=== PATIENT | male | born 1955 | race Caucasian/White ===

== ENCOUNTER 2022-10-17 12:10 | Outpatient (CLI) | payer MEDICARE, SELFPAY ==
--- NOTE | ~2022-10-17 | XR_ITS ---
XR abdomen/kub 1V 10/17/2022 12:26 Indication: Left renal stone. Recent stent placement. Procedure: KUB Comparison: 08/02/2007 Findings: Bowel gas pattern is nonobstructive. There is a left internal ureteral stent. There is a hawk rgical clip in the right upper quadrant, likely prior cholecystectomy. There is a small left renal st one at the lower pole. There are pelvic phleboliths and vascular calcifications. Impression: 1: Left nephrolithiasis. Left internal ureteral stent in expected position. Reviewed, dictated and finalized at location L. Impression: 1: Left nephrolithiasis. Left internal ureteral stent in expected position.
== END 2022-10-17 12:11 | disposition home or self-care (01) ==
LOC: ANHIMG 12:15
PROVIDERS: PCP Physician Assistant Medical; Visit Provider Urology
DX: N20.0 Calculus of kidney (principal)
CPT/HCPCS: 74018

== ENCOUNTER 2022-10-25 08:20 | Outpatient (CLI) | payer MEDICARE, SELFPAY ==
--- NOTE | 2022-10-25 08:59 | ECG_ITS ---
Measurements Intervals Andrews Rate: 57 P: 23 VT: 152 QRS: 28 QRSD: 130 T: -9 QT: 444 QTc: 435 Interpretive Statements SINUS BRADYCARDIA RIGHT BUNDLE BRANCH BLOCK BORDERLINE ST-T WAVE ABNORMALITY- INFERIOR LEADS ABNORMAL ECG NO PREVIOUS ECG AVAILABLE FOR COMPARISON Electronically Signed On 10-25-2022 9:42:22 CDT by Guero Negrete D.O.
[2022-10-25 09:39] LABS: INR 0.9; Prothrombin Time 12.7 Seconds (11.1-14.7)
[2022-10-25 09:40] LABS: Partial Thromboplastin Time 24.4 SECONDS (22.3-36.8)
[2022-10-25 09:56] LABS: Anion Gap 6 mmol/L (8-16); Blood Urea Nitrogen 13 mg/dL (9-20); Calcium 8.8 mg/dL (8.4-10.2); Carbon Dioxide 26 mmol/L (22-30); Chloride 104 mmol/L (98-107); Estimated Glomerular Filt Rate > 60; Glucose 182 mg/dL (65-110); Potassium 4.4 mmol/L (3.4-5.0); Sodium 136 mmol/L (137-145)
== END 2022-10-25 08:21 | disposition home or self-care (01) ==
LOC: ANHSURGERY 08:23
PROVIDERS: Anesthesiology; PCP Physician Assistant Medical; Visit Provider Urology
DX: N20.0 Calculus of kidney (principal); E11.9 Type 2 diabetes mellitus without complications; I10 Essential (primary) hypertension; Z01.818 Encounter for other preprocedural examination; I45.10 Unspecified right bundle-branch block
CPT/HCPCS: 36415; 80048; 85610; 85730; 87086; 93005

== ENCOUNTER 2022-10-27 01:00 | Day surgery (SDC) | payer MEDICARE, SELFPAY ==
--- NOTE | 2022-10-19 15:11 | PC.NURSE ---
Report to the Outpatient Waiting Room, entrance under the green pavilion located off [facility], at time __0630 on date __10/27/22 . Planned Procedure Time: . Time changes happen often and if your time is changed the preop area will call you the afternoon before. - You and your visitor will be asked to self-screen and do not enter if you have any COVID symptoms. - A mask is optional within the hospital at this time. Patients may have clear liquids (water, carbonated beverages, clear teas, apple juice) until 3 hours prior to surgery with a maximum of 20 ounces. - No food from midnight until time of surgery - Infants may have breast milk until 4 hours before surgery, formula 6 hours prior to surgery. - Children will be allowed to drink immediately following surgery. If applicable, please bring a bottle or sippy cup to assist with drinking. Juice, water, soda, and popsicles are readily available. For infants on formula, please bring formula the day of surgery. Pacifiers are allowed. Take the following medications with a SIP of water the morning of surgery: ____GABAPENTIN,CIPRO AND HYDROCODONE IF NEEDED FOR PAIN DO NOT STOP ANY OF YOUR OTHER PRESCRIPTION MEDICATIONS PRIOR TO SURGERY ?EXCEPT THE FOLLOWING Medications to discontinue per physician NONE Date to take last dose Please no make-up, nail estonian, hairspray, perfume, deodorant, or body powder the day of surgery. No jewelry (including any body piercings) or valuables the day of surgery, leave them at home. Please take a shower or bath the night before, or the morning of, surgery with an antibacterial soap. Wear comfortable, loose fitting clothing. Children are encouraged to wear pajamas. - Jewelry must be removed prior to entering the operating room. Rings and piercings that are not removed may be cut off. - The hospital will not accept responsibility for valuables. - Please leave all valuables, including medications, at home the day of surgery. If you are going home after surgery, a licensed truss driver helper must drive you home. - NO public transportation without another adult if you receive anesthesia. - We recommend that an adult stay with you for 24 hours following discharge. - We also recommend that you do not drive, make important decision, drink alcoholic beverages, or take any drugs that were not prescribed by your health care provider for at least 24 hours after your discharge time. For Pediatric surgeries, we recommend two adults accompany the child home. Follow any additional instructions given to you from your surgeon. If you or anyone in your household have experienced Covid symptoms in the past week, please notify your surgeon or the nurse liaison at the phone number below for possible testing. Telephone instructions given to __PATIENT and asked if any additional questions and then verbalized understanding. Patient advised to call surgeon office or pre surgery nurse liaison [phone] if any additional questions.
[2022-10-19 15:22] VITALS: BMI 31.4
--- NOTE | 2022-10-24 07:22 | PM.HPGS ---
History of Present Illness History of Present Illness Consent: Risks, benefits, and alternatives have been discussed and questions answered. Patient agrees to proceed with procedure. Chief complaint: left renal stones Narrative: Dung Cordon is a 67 year old male under me with a history of bladder cancer in the past. He was recently admitted to an outside hospital with an obstructing left proximal ureteral stone urinary tract infection. He ureteral stent was placed. Follow-up KUB shows a calcified stone that is been pushed back into is kidney. After discussion of options he elects 1st cystoscopy with left stent removal and left ESWL. He is aware the risk including, but not limited to, hematuria, perinephric hematoma, need for additional procedures. Review of Systems Review of Systems: All systems reviewed & are unremarkable except as noted in HPI and below PMFSH Past Medical History Medical History (Updated 10/24/22 @ 07:24 by Corey Stock MD) Dyslipidemia Essential (primary) hypertension Fibromyalgia History of bladder cancer History of kidney stones Rheumatoid arthritis Type 2 diabetes mellitus without complications Surgical History Surgical History (Updated 06/01/20 @ 16:06 by Shaggy Mcginnis MD) History of bladder surgery 2014 - Trans urethral Excision of tumor History of cholecystectomy History of excision of lesion 06/2018 - left posterior hip, benign lesion Hx of lumbosacral spine surgery Family History Family History Father Hypertension Family history of elevated blood lipids Family history of diabetes mellitus in first degree relative Family history of coronary artery disease Mother Hypertension Family history of diabetes mellitus in first degree relative Sibling Family history of diabetes mellitus in first degree relative Social History Social History Smoking packs per day: 1 Smoking cigarettes per day: 20.0 Years smoked: 30 Smoking pack-years: 30.00 Smoking status: Current every day smoker Tobacco type: cigarettes Alcohol intake: never Substance use: never Substance use type: does not use Living arrangements: with family Spiritual care concerns: No Meds Home Medications and Allergies Home Medications Medication Instructions Recorded Confirmed Type folic acid 1 mg tablet 1 mg PO DAILY #30 tabs 10/08/19 10/19/22 Rx gabapentin 300 mg capsule 300 mg PO TID 06/01/20 10/19/22 History methotrexate sodium 2.5 mg tablet 25 mg PO WEEKLY 06/01/20 10/19/22 History losartan 100 mg tablet See Rx Instructions .Route 08/16/20 10/19/22 Rx .COMPLEX #90 tabs atorvastatin 40 mg tablet 40 mg PO DAILY 10/19/22 10/19/22 History ciprofloxacin HCl 750 mg tablet 750 mg PO BID 10/19/22 10/19/22 History diclofenac sodium 1 % topical gel 2 g topical PRN PRN Pain 10/19/22 10/19/22 History finasteride 5 mg tablet 5 mg PO DAILY 10/19/22 10/19/22 History glimepiride 2 mg tablet 2 mg PO DAILY 10/19/22 10/19/22 History hydrocodone 5 mg-acetaminophen 325 1 tablet PO PRN PRN Pain 10/19/22 10/19/22 History mg tablet mirabegron 25 mg tablet,extended 25 mg PO HS 10/19/22 10/19/22 History release 24 hr (Myrbetriq) oxybutynin chloride 15 mg 15 mg PO DAILY 10/19/22 10/19/22 History tablet,extended release 24 hr tamsulosin 0.4 mg capsule 0.4 mg PO QPM 10/19/22 10/19/22 History Allergies Allergy/AdvReac Type Severity Reaction Status Date / Time No Known Allergies Allergy Unknown Verified 10/19/22 14:52 Exam Const: General: no acute distress Resp: Effort & Inspection: normal respiratory effort GI: Inspection: non-distended GI Palp: No abdominal tenderness and No Guarding due to palpation present (GI) Auscultation: normal bowel sounds Assessment and Plan Assessment and plan (1) Left renal stone: Code(s): N20.0 - Calcu
[2022-10-27] VITALS (10 sets, daily range): BP systolic 116–176; BP diastolic 66–91; PULSE 46–65; RESP 12–18; TEMP 36.1–37.1; O2SAT 96–100
--- NOTE | ~2022-10-27 | XR_ITS ---
Supine and upright views of the abdomen Clinical history: Lithotripsy COMPARISON: 10/17/2022 Findings: Bowel gas pattern is nonspecific. No evidence for obstruction or free air. Left ureteral st ent remains in place. 4 mm left lower pole renal stone present. Osseous structures are intact. Impression: 4 mm left lower pole renal stone. Left ureteral stent in place. Reviewed, dictated and finalized at location . Impression: 4 mm left lower pole renal stone. Left ureteral stent in place.
--- NOTE | 2022-10-27 06:33 | WPDHPUPDATE1 ---
History and Physical Update Update Date/Time: 10/27/22 06:33 History and Physical has been reviewed, including an updated exam of the patient. There are NO changes in the patient's condition. Risks, benefits, and alternatives have been discussed and questions answered. Patient agrees to proceed with procedure.
--- NOTE | 2022-10-27 08:12 | SUR.PREOP ---
pt informed delay in procedure
[2022-10-27 08:16] LABS: Glucose Point of Care 178 mg/dl (65-105)
--- NOTE | 2022-10-27 09:08 | WPDANESEPPF ---
Anes - Initial Pre Proc Eval Procedure: Operation Date: 10/27/22 08:30 Proposed Procedures p Left Extracorporeal Shock Wave Lithotripsy - Corey Stock MD s Cystoscopy with Left Stent Removal - Corey Stock MD Date/Time: 10/27/22 09:08 Surgeon: Corey Stock MD Pre Op Diagnosis: left renal stones Patient Data Age: 67 Gender: M Height: 1.74 m Weight: 94.3 kg Last Vital Signs Temp 37.1 C 10/27/22 06:49 Pulse 65 10/27/22 06:49 Resp 16 10/27/22 06:49 BP 116/69 10/27/22 06:49 Pulse Ox 96 10/27/22 06:49 O2 Del Method Room Air 10/27/22 06:49 Allergies Allergy/AdvReac Type Severity Reaction Status Date / Time No Known Allergies Allergy Unknown Verified 10/27/22 07:39 Home Medications Medication Instructions Recorded Confirmed Type folic acid 1 mg tablet 1 mg PO DAILY #30 tabs 10/08/19 10/27/22 Rx gabapentin 300 mg capsule 300 mg PO TID 06/01/20 10/19/22 History methotrexate sodium 2.5 mg tablet 25 mg PO WEEKLY 06/01/20 10/19/22 History losartan 100 mg tablet See Rx Instructions .Route 08/16/20 10/27/22 Rx .COMPLEX #90 tabs atorvastatin 40 mg tablet 40 mg PO DAILY 10/19/22 10/27/22 History ciprofloxacin HCl 750 mg tablet 750 mg PO BID 10/19/22 10/27/22 History diclofenac sodium 1 % topical gel 2 g topical PRN PRN Pain 10/19/22 10/27/22 History finasteride 5 mg tablet 5 mg PO DAILY 10/19/22 10/27/22 History glimepiride 2 mg tablet 2 mg PO DAILY 10/19/22 10/27/22 History hydrocodone 5 mg-acetaminophen 325 1 tablet PO PRN PRN Pain 10/19/22 10/19/22 History mg tablet mirabegron 25 mg tablet,extended 25 mg PO HS 10/19/22 10/27/22 History release 24 hr (Myrbetriq) oxybutynin chloride 15 mg 15 mg PO DAILY 10/19/22 10/27/22 History tablet,extended release 24 hr tamsulosin 0.4 mg capsule 0.4 mg PO QPM 10/19/22 10/27/22 History Laboratory Tests 10/27/22 08:10 POC Capillary Glucose 178 H mg/dl (65-105) Patient hx anesthesia problems: none Family hx anesthesia problems: none Results Review: All pre-operative results and documents have been reviewed as part of the pre-operative evaluation. PMFSH Past Medical History Medical History Dyslipidemia Essential (primary) hypertension Fibromyalgia History of bladder cancer History of kidney stones Rheumatoid arthritis Type 2 diabetes mellitus without complications Surgical History Surgical History History of bladder surgery 2014 - Trans urethral Excision of tumor History of cholecystectomy 1980s History of excision of lesion 06/2018 - left posterior hip, benign lesion Hx of lumbosacral spine surgery 1980s Family History Family History Father Hypertension Family history of elevated blood lipids Family history of diabetes mellitus in first degree relative Family history of coronary artery disease Mother Hypertension Family history of diabetes mellitus in first degree relative Sibling Family history of diabetes mellitus in first degree relative Social History Social History Smoking packs per day: 1 Smoking cigarettes per day: 20.0 Years smoked: 30 Smoking pack-years: 30.00 Smoking status: Current every day smoker Tobacco type: cigarettes Alcohol intake: never Substance use: never Substance use type: does not use Living arrangements: with family Spiritual care concerns: No Anes - Eval Final PreProcedure Day of Procedure 10/27/22 09:08 Patient weight: obese Heart: regular rate and rhythm Lungs: decreased breath sounds Airway: Mallampati scale class II Neurological: alert and oriented Last oral intake: >/= 8 hours ASA classification: III Emergent: no Anesthetic plan: proceed Anesthesia type and monitoring: general LMA
[2022-10-27] MEDS: LACTATED RINGERS 1,000 ML 30 ML IV CONT (09:12)
--- NOTE | 2022-10-27 09:39 | P.OP_ITS ---
Procedure Note - Detailed Date of Procedure 10/27/22 Pre-op Diagnosis Left renal stones Post-op Diagnosis Same Procedure Performed Cystoscopy, left ureteral stent removal, left ESWL Surgeon Corey Stock MD Anesthesia General Description of Procedure The patient was brought to the operative suite where he was placed in the supine position on the Dornier lithotripter table. Rigid cystoscopy was undertaken with a 19F rigid cystoscopy. There were no urethral strictures. The prostatic urethra estimated length was 1.5cm. There was moderate obstruction of the prostatic urethra with no median lobe enlargement. The bladder mucosa was normal and there was a single, orthotopic ureteral orifice bilaterally. The tip of the indwelling stent is grasped and it is removed with ease. The patient was then repositioned in the supine position with the focal point of the lithotriptor on a 6-7mm left mid-ureteral calculus. A total of 2500 shocks were delivered at a power setting of 4. There appeared to be good fragmentation of the stone. The patient tolerated the procedure well and was taken to the [facility] room in good condition.
[2022-10-27 10:12] LABS: Glucose Point of Care 147 mg/dl (65-105)
[2022-10-27] MEDS: fentaNYL CITRATE INJ (*CRX) 100 MCG/2 ML VIAL 25 MCG IV PUSH ×4 (10:28→10:38)
--- NOTE | 2022-10-27 10:50 | SUR.PHASEI ---
Spoke with Dr. Ambriz regarding patient's elevated BP in PACU. Dr. Ambriz stated to continue monitoring patient and instruct him to take his BP meds when he is discharged home.
[2022-10-27] MEDS: oxyCODONE HCL (*CRX) 5 MG TAB IR PO (11:38)
== END 2022-10-27 12:16 | disposition home or self-care (01) ==
PROVIDERS: PCP Physician Assistant Medical; Visit Provider Urology
PROC: (CPT 50590; principal; 2022-10-27 08:30)
PROC: (CPT 52310; 2022-10-27 08:30)
DX: N20.0 Calculus of kidney (principal); Z79.84 Long term (current) use of oral hypoglycemic drugs; I10 Essential (primary) hypertension; E78.5 Hyperlipidemia, unspecified; E11.9 Type 2 diabetes mellitus without complications; M79.7 Fibromyalgia; M06.9 Rheumatoid arthritis, unspecified; Z85.51 Personal history of malignant neoplasm of bladder; F17.210 Nicotine dependence, cigarettes, uncomplicated; E66.9 Obesity, unspecified; Z68.31 Body mass index [BMI] 31.0-31.9, adult
CPT/HCPCS: 52310; 50590; 74018; 82948; A9270; J2250; J2405; J2704; J3010; J7120